=== PATIENT | female | born 1975 | race Caucasian/White ===

== ENCOUNTER 2017-08-30 18:04 | Emergency (ER) | payer OTHER ==
[~2017-08-30] VITALS: Ht 152.4 cm; Wt 56.0 kg
[2017-08-30 18:06] VITALS: BP 118/71; PULSE 103; RESP 16; TEMP 98.4; O2SAT 98
--- NOTE | 2017-08-30 18:27 | PD ---
HPI Chief Complaint: Headache Time Seen by Provider: 18:15 Travel History International Travel<30 days: No Contact w/Intl Traveler<30days: No Traveled to known affect area: No History of Present Illness HPI This is a 42-year-old female with no significant past medical history, presents today with complaints of headache. Patient also reports associated nausea vomiting. Patient has no history of previous headaches. She does have a identical twin sister who has migraine headaches. Patient reports that when she woke up, she was feeling fine. She states that shortly into her day she started experiencing a posterior occipital and right sided temporal headache. She denies any stiff neck. She denies any associated fever, chills. There is no photophobia blurry vision. Patient denies any recent ill contacts or illnesses. She works at a [employer] and is around large crowds of people. Patient denies any temporal relationship to her menstrual cycle. PFSH Past Medical History ?: Not Social History Tobacco Use: No Allergies-Medications (Allergen,Severity, Reaction): Coded Allergies: Sulfa (Sulfonamide Antibiotics) (Verified Allergy, Severe, 08/30/17) Reported Meds & Prescriptions Reported Meds & Active Scripts Active Naproxen 500 Mg Tab 500 Mg PO BID PRN Reported Carafate (Sucralfate) 1 Gram Tab 1 Gm PO QID On empty stomach Protonix (Pantoprazole Sodium) 40 Mg Tab 40 Mg PO DAILY Review of Systems Except as stated in HPI: all other systems reviewed are Neg General / Constitutional: No: Fever, Chills Eyes: No: Blurred Vision, Photophobia HENT: Positive: Headaches, No: Neck Stiffness, Neck Pain Cardiovascular: No: Chest Pain or Discomfort, Palpitations Respiratory: No: Cough, Shortness of Breath Gastrointestinal: Positive: Nausea, Vomiting, No: Diarrhea, Abdominal Pain Genitourinary: No: Incontinence Musculoskeletal: No: Weakness, Pain Skin: No Rash, No Itching, No Lesions Neurologic: Positive: Headache, No: Weakness, Dizziness, Change in Mentation, Paresthesia, Sensory Disturbance Physical Exam Narrative GENERAL: Well-developed well-nourished female in no acute distress. The patient appears nontoxic. SKIN: Focused skin assessment warm/dry. HEAD: Atraumatic. Normocephalic. EYES: Pupils equal and round. No photophobia. Extraocular muscles were intact. No scleral icterus. No injection or drainage. ENT: No nasal bleeding or discharge. Mucous membranes pink and moist. NECK: Trachea midline. Supple with no nuchal rigidity. CARDIOVASCULAR: Regular rate and rhythm. No murmur appreciated. RESPIRATORY: No accessory muscle use. Clear to auscultation. Breath sounds equal bilaterally. GASTROINTESTINAL: Abdomen soft, non-tender, nondistended. Hepatic and splenic margins not palpable. MUSCULOSKELETAL: No obvious deformities. No clubbing. No cyanosis. No edema. NEUROLOGICAL: Awake and alert. No obvious cranial nerve deficits. Motor grossly within normal limits. Normal speech. Data Data Last Documented VS Vital Signs Date Time Temp Pulse Resp B/P (MAP) Pulse Ox O2 Delivery O2 Flow Rate FiO2 08/30/17 20:53 86 16 113/70 (84) 97 08/30/17 19:10 Room Air 08/30/17 18:06 98.4 Orders Orders Prochlorperazine Inj (Compazine Inj) (08/30/17 18:30) Sodium Chlor 0.9% 1000 Ml Inj (Ns 1000 M (08/30/17 18:30) Ct Brain W/O Iv Contrast(Rout) (08/30/17 18:22) Ed Discharge Order (08/30/17 20:47) MDM Medical Decision Making Medical Screen Exam Complete: Yes Emergency Medical Condition: Yes Differential Diagnosis Migraine exacerbation versus tension headache versus subarachnoid hemorrhage versus meningitis Narrative Course 42-year-old female presents with headache. Patient has no history of headache. Her identical twin sister has a history of migraines. Patient's presentation seems suspicious for migraine headache. Patient denies any fevers, chills. There is no nuchal rigidity. There is no focal neuro deficits. A CT scan was ordered to rule out acute intracranial pathology. She was given 1 L of IV fluid and [address] scan is pending at this time. Patient will be signed out to Dr. Viviana Carey, physician replaced me at change of shift. I anticipate the patient will feel better. My suspicion for subarachnoid hemorrhage is extremely low. Diagnosis Primary Impression: Cephalgia Scripts Naproxen (Naproxen) 500 Mg Tab 500 MG PO BID Y for HEADACHE, #10 TAB 0 Refills Prov: Viviana Carey MD 08/30/17 Albert Toussaint MD August 30, 2017 18:27
[2017-08-30] MEDS ORDERED: SODIUM CHLOR 0.9% 1000 ML INJ 1,000 ML IV ONE (18:30)
[2017-08-30] MEDS ORDERED: PROCHLORPERAZINE INJ 10 MG/2 ML VIAL IV PUSH ONE (18:30)
[2017-08-30] MEDS ORDERED: CARA1TAB6 PO (18:32)
[2017-08-30] MEDS ORDERED: PROT40TA PO (18:32)
--- NOTE | 2017-08-30 19:07 | RADRPT ---
EXAM DATE/TIME: 08/30/2017 18:47 [facility] COMPARISON: No previous studies available for comparison. INDICATIONS : Cephalgia today. RADIATION DOSE: 44.85 CTDIvol (mGy) MEDICAL HISTORY : None SURGICAL HISTORY : None. ENCOUNTER: Initial ACUITY: 1 day PAIN SCALE: 7/10 LOCATION: Bilateral head TECHNIQUE: Multiple contiguous axial images were obtained of the head. Using automated exposure control and adj ustment of the mA and/or kV according to patient size, radiation dose was kept as low as reasonably a chievable to obtain optimal diagnostic quality images. DICOM format image data is available electro nically for review and comparison. FINDINGS: CEREBRUM: The ventricles are normal for age. No evidence of midline shift, mass lesion, hemorrhage or acute in farction. No extra-axial fluid collections are seen. POSTERIOR FOSSA: The cerebellum and brainstem are intact. The 4th ventricle is midline. The cerebellopontine angle i s unremarkable. EXTRACRANIAL: The visualized portion of the orbits is intact. SKULL: The calvaria is intact. No evidence of skull fracture. CONCLUSION: Normal examination for a patient of this age. Ankit Haywood MD on August 30, 2017 at 19:04 Board Certified Radiologist. This report was verified electronically.
[2017-08-30 19:10] VITALS: BP 119/72; PULSE 81; RESP 16; O2SAT 97
[2017-08-30] MEDS ORDERED: NAPR500T2 PO (20:47)
[2017-08-30 20:53] VITALS: BP 113/70
--- NOTE | 2017-08-30 21:11 | PD ---
Data Data Last Documented VS Vital Signs Date Time Temp Pulse Resp B/P (MAP) Pulse Ox O2 Delivery O2 Flow Rate FiO2 08/30/17 19:10 81 16 119/72 (88) 97 Room Air 08/30/17 18:06 98.4 Orders Orders Prochlorperazine Inj (Compazine Inj) (08/30/17 18:30) Sodium Chlor 0.9% 1000 Ml Inj (Ns 1000 M (08/30/17 18:30) Ct Brain W/O Iv Contrast(Rout) (08/30/17 18:22) MDM Supervised Visit with WOODY: No Narrative Course This is a 42-year-old female who presents to the emergency department with gradual onset of headache earlier today around 8:30 AM. She has a twin sister who has migraines. She has a normal neurologic exam with no meningismus. I do not suspect a subarachnoid hemorrhage based on her description of symptoms. CT of the head is unremarkable. Patient was advised to return her primary care physician if her headaches are recurring. She will be discharged on anti- inflammatories. Diagnosis Primary Impression: Migraine headache Qualified Codes: G43.009 - Migraine without aura, not intractable, without status migrainosus Patient Instructions: General Instructions Additional Instruction: If you develop severe worsening headache, persistent vomiting, numbness, weakness, difficulty walking or difficulty talking return to the emergency department immediately. Sometimes in the emergency department we did not identify the cause of headaches. If you continued to have headaches it is very important that you followup with your primary care physician as you may need further testing with an MRI. Med/Other Pt SpecificInfo: Prescription(s) given Scripts Naproxen (Naproxen) 500 Mg Tab 500 MG PO BID Y for HEADACHE, #10 TAB 0 Refills Prov: Viviana Carey MD 08/30/17 Disposition: 01 DISCHARGE HOME Condition: Stable Viviana Carey MD August 30, 2017 20:47
== END 2017-08-30 21:20 | disposition home or self-care (01) ==
LOC: PHED 18:04
DX: G43.009 Migraine without aura, not intractable, without status migrainosus (principal)
CPT/HCPCS: 70450; 96361; 96374; 99284; J0780; J7030